=== PATIENT | female | born 1965 | race Caucasian/White ===

== ENCOUNTER 2018-07-14 09:09 | Day surgery (SDC) | payer OTHER ==
[~2018-07-14] VITALS: Ht 152.4 cm; Wt 71.4 kg
[2018-07-14 10:34] VITALS: Ht 152.4 cm; Wt 71.4 kg
[2018-07-14] MEDS ORDERED: MULTIVITAMINS (10:43)
[2018-07-14 10:52] VITALS: BP 118/65; PULSE 68; RESP 18
[2018-07-14] MEDS ORDERED: MIDAZOLAM 1 MG/ML 2 ML INJ ONE (11:48)
[2018-07-14] MEDS ORDERED: FENTAnyl 50 MCG/ML VIAL ONE (11:48)
[2018-07-14 11:54] VITALS: BP 121/57; PULSE 66; RESP 20
[2018-07-14 11:59] VITALS: BP 101/55; PULSE 60
[2018-07-14 12:04] VITALS: BP 99/55; PULSE 64; RESP 18
== END 2018-07-14 11:56 | disposition home or self-care (01) ==
LOC: GIL 09:09
PROVIDERS: ATTEND Internal Medicine Gastroenterology
DX: K92.1 Melena (principal); K64.8 Other hemorrhoids
CPT/HCPCS: 45378; J2250; J3010; Z7610